=== PATIENT | male | born 1995 | race Caucasian/White ===

== ENCOUNTER 2018-09-12 17:29 | Emergency (ER) | payer OTHER ==
--- NOTE | 2018-09-12 17:58 | EDPHY ---
General Time Seen by Provider: 09/12/18 17:50 Narrative: CLINICAL IMPRESSION: Breakthrough seizure ASSESSMENT/PLAN: 23-year-old male with a known seizure disorder, presents to the emergency department by ambulance, postictal, after experiencing a witnessed seizure at the [employer] store. Patient was fairly confused and disoriented on arrival, majority of history was obtained from his father by phone who is a radiologist in [facility]. Patient's father reports the patient has been very noncompliant with his Keppra, reportedly had a very thorough evaluation by a [place] neurologist when seizures began in 2016 and was on full driving capabilities. Father reports patient had normal CT, MRI and EEG. Labs suggestive of recent seizure, improved after a L fluid. No physical signs of trauma, tongue laceration, urinary incontinence. Patient's mental status cleared after 2 hr of observation in the ED. He was given 1 g of Keppra by IV. I have encouraged that he follow up with [facility] and emphasized the importance of avoiding driving until he is cleared by Neurology. Warning signs return to ED sooner discussed in discharge. Case reviewed with Dr. Rolon. DIFFERENTIAL DX: Differential includes but not limited to breakthrough seizure, medication noncompliance, electrolyte imbalance, hyponatremia, hypoglycemia ED PROCEDURES: See lab and/or imaging results below ED COURSE: 1750: Seen by myself at EMS arrival. Pt is cooperative, but post ictal. No e/ o tongue lac/incontinence. : Patient reassessed, feeling much better, remembers being at the phone store and remembers feeling an aura. Tells me the last time he took his Keppra was a month ago because he was not having as many auras and so he thought his seizures had cleared. States he plans to follow up with a neurologist here because the neurologist in [place] will suspend his license. I emphasized the importance of not driving until he is cleared by a neurologist. His friend is at bedside to drive him home. CHIEF COMPLAINT: Seizure HPI: 23-year-old male presents to the emergency department by EMS after experiencing witnessed seizure at the local [employer] store. According to EMS, patient was very combative in route requiring 2 point restraints and 2.5mg of Versed. Patient arrives cooperative but postictal. He believes it is 2017. He is able to tell me he is in a hospital in [place]. 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 He reports he has a seizure activity and that he has not been taking his Keppra. I was able to speak to patient's father by phone who is a radiologist in [facility]. He confirms that the patient was initially diagnosed with a seizure disorder in 2016, seen by a local [place] physician here as well as in his home state with comprehensive evaluation including CT, MRI and EEG which were all normal. He has been cleared to drive for the last several years but has been chronically noncompliant with his Keppra. Patient's father believes he takes 500 mg extended release once daily. Patient is unable to tell me the last time he took his medicine. He denies any other drugs aside from marijuana. He has no complaints of pain. PAST MEDICAL HISTORY: Anxiety, seizure disorder See nurse/triage notes for additional history if applicable Pertinent Past Surgical History: None reported Family History: Father is radiologist in [facility] Social History: Smokes marijuana, student at [employer] REVIEW OF SYSTEMS: All other systems negative Constitutional: No fever, no chills, appetite change. Eyes: No vision change ENT: No sore throat, congestion, ear pain. Cardiovascular: No chest pain, no palpitations. Respiratory: No cough, no shortness of breath. Gastrointestinal: No abdominal pain, no vomiting Musculoskeletal: No back pain, neck pain, joint swelling, joint pain, myalgias. Skin: No rashes, color change. Neurological: No headache, dizziness, weakness. PHYSICAL EXAM: General Appearance: Alert, oriented, postictal, confused, well hydrated, non- toxic appearing, VSS, no hypoxia. HEENT: No palpable scalp hematoma laceration or contusion TMs are clear bilaterally no perforation or FB, no injection, no evidence of serous or mucopurulent otitis. No hemotympanum or Infante sign. Oropharynx clear is no erythema or exudates, no tonsillar hypertrophy or asymmetry. Dentition without abnormality. Eyes: PERRLA, no nystagmus, or photosensitivity. Conjunctiva pink, no pallor or injection Neck: [Supple, nontender, no lymphadenopathy, no midline pain, FROM Respiratory: There are no retractions, lungs are clear to auscultation. No chest wall or rib pain to palpation Cardiac: Regular rate and rhythm, no murmurs or gallops. Gastrointestinal: [Abdomen is soft, nontender, no evidence of urinary incontinence Neurological: Alert and oriented x 2, patient believes it is 2017, CN 2-12 grossly intact, no limb ataxia, normal sensation and strength Skin: Warm, dry, no rashes, no nodules on palpation. Musculoskeletal: Extremities are symmetrical, full range of motion, no tenderness, deformity, swelling, or erythema. MEDICAL DECISION MAKING: Patient was seen independently. Secondary supervising physician at time of evaluation was Dr. Rolon. Diagnosis: Breakthrough seizure in a patient with seizure history . New, requires workup Summary: See Assessment and Plan for summary of ED visit Clinical lab tests: ordered / reviewed. Decision to obtain medical records or history from someone other than the patient: Patient's father Review / Summarize previous medical records: Reviewed records from 2016 Discussed patient with another provider: Dr. Rolon Patient Progress: Improved, stable for discharge. - History Smoking Status: Current every day smoker - Objective Vital Signs: Initial Vital Signs Temperature (C) 36.5 C 09/12/18 17:36 Heart Rate 88 09/12/18 17:36 Respiratory Rate 16 09/12/18 17:36 Blood Pressure 127/77 H 09/12/18 17:36 O2 Sat (%) 97 09/12/18 17:36 O2 Delivery Mode Room Air Allergies/Adverse Reactions: No Known Allergies Allergy (Verified 03/06/16 10:39) Home Medications: Medication Instructions Recorded Macario 03/06/16 Laboratory Results: Laboratory Results 09/12/18 17:30 09/12/18 19:44 09/12/18 09/12/18 09/12/18 19:44 17:30 17:30 WBC 14.18 10^3/uL H 10^3/uL (3.80-9.50) RBC 5.20 10^6/uL 10^6/uL (4.40-6.38) Hgb 16.7 g/dL g/dL (13.7-17.5) Hct 51.4 % H % (40.0-51.0) MCV 98.8 fL fL (81.5-99.8) MCH 32.1 pg pg (27.9-34.1) MCHC 32.5 g/dL g/dL (32.4-36.7) RDW 11.7 % % (11.5-15.2) Plt Count 334 10^3/uL 10^3/uL (150-400) MPV 10.4 fL fL (8.7-11.7) Neut % (Auto) 30.1 % L % (39.3-74.2) Lymph % (Auto) 54.6 % H % (15.0-45.0) [place] % (Auto) 9.5 % % (4.5-13.0) Eos % (Auto) 4.5 % % (0.6-7.6) Baso % (Auto) 0.9 % % (0.3-1.7) Nucleat RBC Rel Count 0.0 % % (0.0-0.2) Absolute Neuts (auto) 4.27 10^3/uL 10^3/uL (1.70-6.50) Absolute Lymphs (auto) 7.74 10^3/uL H 10^3/uL (1.00-3.00) Absolute Monos (auto) 1.35 10^3/uL H 10^3/uL (0.30-0.80) Absolute Eos (auto) 0.64 10^3/uL H 10^3/uL (0.03-0.40) Absolute Basos (auto) 0.13 10^3/uL H 10^3/uL (0.02-0.10) Absolute Nucleated RBC 0.00 10^3/uL 10^3/uL (0-0.01) Immature Gran % 0.4 % % (0.0-1.1) Immature Gran # 0.06 10^3/uL 10^3/uL (0.00-0.10) RBC/WBC/PLT Morphology TNP Atypical Lymphocytes 1+ H Platelet Estimate TNP Sodium 135 mEq/L mEq/L 144 mEq/L mEq/L (135-145) (135-145) Potassium 3.7 mEq/L mEq/L 4.0 mEq/L mEq/L (3.5-5.2) (3.5-5.2) Chloride 105 mEq/L mEq/L 102 mEq/L mEq/L (97-110) (97-110) Carbon Dioxide 23 mEq/l mEq/l 11 mEq/l L mEq/l (22-31) (22-31) Anion Gap 7 mEq/L mEq/L 31 mEq/L H mEq/L (6-14) (6-14) BUN 17 mg/dL mg/dL 16 mg/dL mg/dL (7-23) (7-23) Creatinine 0.8 mg/dL mg/dL 1.1 mg/dL mg/dL (0.7-1.3) (0.7-1.3) Estimated GFR > 60 > 60 Glucose 87 mg/dL mg/dL 107 mg/dL H mg/dL (70-100) (70-100) Calcium 8.4 mg/dL L mg/dL 10.3 mg/dL mg/dL (8.5-10.4) (8.5-10.4) Total Bilirubin 0.6 mg/dL mg/dL (0.1-1.4) AST 36 IU/L IU/L (17-59) ALT 28 IU/L IU/L (21-72) Alkaline Phosphatase 64 IU/L IU/L (38-126) Total Protein 8.3 g/dL H g/dL (6.3-8.2) Albumin 5.8 g/dL H g/dL (3.5-5.0) Medications Given: Discontinued Medications Sodium Chloride (Ns) 1,000 mls @ 0 mls/hr IV EDNOW ONE; Wide Open PRN Reason: Protocol Stop: 09/12/18 18:02 Last Admin: 09/12/18 18:05 Dose: 1,000 mls Levetiracetam (Keppra (Premix)) 100 mls @ 400 mls/hr IV EDNOW ONE Stop: 09/12/18 18:36 Last Admin: 09/12/18 18:53 Dose: 100 mls Departure - Departure Disposition: Home, Routine, Self-Care Clinical Impression: Seizure disorder Condition: Good Instructions: Recurrent Seizures in Adults (ED) Additional Instructions: DISCHARGE INSTRUCTIONS FROM YOUR DOCTOR Thank you for visiting our emergency department today. You were treated by a physician family services assistant today and your case was reviewed with our ED Attending physician. Please keep in mind that discharge from the emergency department does not mean that there is nothing wrong - it simply means that we have not identified an emergency condition that requires further evaluation or treatment in the hospital. You should always plan to follow up with primary care for re- evaluation of your condition in the next 2-3 days. If you have been referred to a specialist, please call as soon as possible (today or tomorrow) to schedule your follow up appointment at the appropriate time. YOU APPEAR TO HAVE SUFFERED A BREAKTHROUGH SEIZURE TODAY, POSSIBLY DUE TO NONCOMPLIANCE WITH KEPPRA. WE STRONGLY RECOMMEND YOU TAKE YOUR MEDICATION EVERY DAY PRESCRIBED. PLEASE FOLLOW-UP WITH YOUR PRIMARY NEUROLOGIST. DO NOT DRIVE UNTIL YOU SEE YOUR NEUROLOGIST AND ARE GIVEN CLEARANCE TO DO SO. LABORATORY EVALUATION TODAY INDICATED PROBABLE SEIZURE ACTIVITY. LAB VALUES DID IMPROVE AFTER IV FLUIDS. WE DID GIVE YOU A DOSE OF KEPPRA IN THE EMERGENCY DEPARTMENT. PLEASE CONTACT [facility] TOMORROW TO MAKE A FOLLOW-UP APPOINTMENT. RETURN TO THE EMERGENCY DEPARTMENT SOONER FOR RECURRENT SEIZURE, SEVERE HEADACHE OR ALTERED MENTAL STATUS, SEVERE DIZZINESS, FEVERS OR ANY OTHER CONCERNS. People present with illnesses and injuries in different ways, and it is always possible that we have missed something. You may always return for re-evaluation if symptoms worsen or if they are not improving or if you develop new/different symptoms. Again, thank you for choosing our emergency department. We hope that you feel better. Referrals: Patient,NotPresent [Unknown] - As per Instructions [facility] ,. [Edm Groups for Call Sched] - 1-2 days without fail
[2018-09-12] MEDS ORDERED: NS 1,000 ML IV ONE (18:01)
[2018-09-12] MEDS ORDERED: levETIRAcetam 1000MG/NACL 100 ML IV ONE (18:22)
[2018-09-12 18:59] LABS: PLATELET COUNT 334 10^3/uL (150-400)
[2018-09-12 20:45] VITALS: BP 117/97
== END 2018-09-12 21:08 | disposition home or self-care (01) ==
LOC: EDUNIT#
DX: G40.909 Epilepsy, unspecified, not intractable, without status epilepticus (principal); E86.9 Volume depletion, unspecified
CPT/HCPCS: 96365; J1953